=== PATIENT | female | born 1995 | race Caucasian/White ===

== ENCOUNTER 2016-08-30 06:33 | Inpatient (IN) | payer BC, MEDICAID ==
[~2016-08-30] VITALS: Ht 152.4 cm; Wt 56.2 kg
[2016-08-30] VITALS (25 sets, daily range): BP systolic 105–154; BP diastolic 59–87; PULSE 52–83; RESP 17–20; TEMP 97.6–99.3
[~2016-08-30 06:33] MED LIST: Z.0.NO CURRENT MEDS
[2016-08-30] MEDS ORDERED: LACTATED RINGER'S 1000 ML INJ 1,000 ML IV PRN (07:54)
--- NOTE | 2016-08-30 07:54 | PD ---
HPI Chief Complaint Contractions, fluid per vagina since her exam at the office yesterday Date Seen: Aug 30, 2016 Time Seen: 07:50 Travel History International Travel<30 Days: No Contact w/Intl Traveler<30Days: No Known Affected Area: No History of Present Illness HPI 21-year-old female who is at 39 weeks 2 days comes in today complaining of contractions since 4:00 this morning, and the vaginal fluid since her exam yesterday in the office. Admission the office was 4 cm and some effacement. We strep negative is otherwise uncomplicated patient has a history of a possible seizure disorder but she is not on any medication showed no seizure activity during the . Para: 0 : 1 History Past Medical History Narrative Medical Question will seizure disorder Past Surgical History Surgical History: No Previous Surgery Family History Family History: Negative Social History Alcohol Use: No Tobacco Use: No Substance Abuse: No Allergies-Medications (Allergen,Severity, Reaction): Coded Allergies: No Known Allergies (Verified Allergy, Mild, 05/16/07) Home Meds Reported Medications Miscellaneous (No Current Meds) Misc Ref 0 05/16/07 Review of Systems Except as stated in HPI: all other systems reviewed are Neg Physical Exam Narrative GENERAL: Well-nourished, well-developed patient. SKIN: Warm and dry. HEAD: Normocephalic and atraumatic. EYES: No scleral icterus. No injection or drainage. ENT: No nasal drainage noted. Mucous membranes pink. Airway patent. NECK: Supple, trachea midline. No JVD. CARDIOVASCULAR: Regular rate and rhythm without murmurs, gallops, or rubs. RESPIRATORY: Breath sounds equal bilaterally. No accessory muscle use. BREASTS: Bilateral exam showed no masses , no retractions, no nipple discharge. ABDOMEN/GI: Abdomen soft, non-tender, bowel sounds present, no rebound, no guarding Gravid to [39-] weeks size Fundal Height: [-] GENITOURINARY: External Genitalia: intact and normal in appearance BUS glands: [-Normal] Cervix: [-Posterior] Dilatation: [-3-4] Effacement: [-80] Station: [--2] Presentation: [Vertex-] Membranes: ruptured] Uterine Contractions: [-Every 3] FHT's: Category: [1] Baseline: [140-] Reactive: [-Moderate] Variability: [-Moderate] Decels: [-Absent] EXTREMITIES: No cyanosis or edema. BACK: Nontender without obvious deformity. No CVA tenderness. NEUROLOGICAL: Awake and alert. Motor and sensory grossly within normal limits. Five out of 5 muscle strength in all muscle groups. Normal speech. Data Data Vital Signs Reviewed: Yes MDM Plan 21-year-old female at 39 weeks and 2 days here with a positive amnisure, ruptured membranes since yesterday clear fluid Group B strep negative Patient's family refuses to be taking care of by Dr. Hernandez who is on-call for [facility] [employer] [facility]. I spoke in both to Dr. Hernandez and Dr. Jacobs advanced have instructed the patient does not desire Dr. Hernandez that she'll be taken over by the hospitalist service. Plan to admit patient desires possible epidural. Diagnosis Diagnosis: Primary Impression: 39 weeks gestation of Additional Impression: Ruptured membranes, prolonged Disposition: 01 DISCHARGE HOME Elsa Sanabria MD Aug 30, 2016 07:54
[2016-08-30] MEDS ORDERED: OXYTOCIN 30 UNITS-500ML PREMIX 500 ML IV ONE (08:00)
[2016-08-30] MEDS ORDERED: LIDOCAINE HCL 1% 50 ML VIAL INFIL PRN (08:00)
[2016-08-30] MEDS ORDERED: CITRIC ACID-SODIUM CITRATE LIQ 30 ML UDC PO SCH (08:00)
[2016-08-30] MEDS ORDERED: MINERAL OIL 10 ML VIAL TOPICAL PRN (08:00)
[2016-08-30] MEDS ORDERED: LIDOCAINE HCL 1% 50 ML VIAL I-DERMAL PRN (08:00)
[2016-08-30] MEDS ORDERED: SODIUM CHLORID 0.9% 500 ML INJ 500 ML IV PRN (08:00)
[2016-08-30] MEDS ORDERED: SODIUM CHLOR 0.9% 1000 ML INJ 1,000 ML IV PRN (08:14)
[2016-08-30] MEDS ORDERED: PRENTAB44 PO (08:26)
--- NOTE | 2016-08-30 08:36 | HHI.HP ---
History & Physical H&P HPI Chief Complaint Contractions, fluid per vagina since her exam at the office yesterday Date Seen: Aug 30, 2016 Time Seen: 07:50 Travel History International Travel<30 Days: No Contact w/Intl Traveler<30Days: No Known Affected Area: No History of Present Illness HPI 21-year-old female who is at 39 weeks 2 days comes in today complaining of contractions since 4:00 this morning, and the vaginal fluid since her exam yesterday in the office. Admission the office was 4 cm and some effacement. We strep negative is otherwise uncomplicated patient has a history of a possible seizure disorder but she is not on any medication showed no seizure activity during the . Para: 0 : 1 History Past Medical History Narrative Medical Question will seizure disorder Past Surgical History Surgical History: No Previous Surgery Family History Family History: Negative Social History Alcohol Use: No Tobacco Use: No Substance Abuse: No Allergies-Medications (Allergen,Severity, Reaction): Coded Allergies: No Known Allergies (Verified Allergy, Mild, 05/16/07) Home Meds Reported Medications Miscellaneous (No Current Meds) Misc Ref 0 05/16/07 Review of Systems Except as stated in HPI: all other systems reviewed are Neg Physical Exam Narrative GENERAL: Well-nourished, well-developed patient. SKIN: Warm and dry. HEAD: Normocephalic and atraumatic. EYES: No scleral icterus. No injection or drainage. ENT: No nasal drainage noted. Mucous membranes pink. Airway patent. NECK: Supple, trachea midline. No JVD. CARDIOVASCULAR: Regular rate and rhythm without murmurs, gallops, or rubs. RESPIRATORY: Breath sounds equal bilaterally. No accessory muscle use. BREASTS: Bilateral exam showed no masses , no retractions, no nipple discharge. ABDOMEN/GI: Abdomen soft, non-tender, bowel sounds present, no rebound, no guarding Gravid to [39-] weeks size Fundal Height: [-] GENITOURINARY: External Genitalia: intact and normal in appearance BUS glands: [-Normal] Cervix: [-Posterior] Dilatation: [-3-4] Effacement: [-80] Station: [--2] Presentation: [Vertex-] Membranes: ruptured] Uterine Contractions: [-Every 3] FHT's: Category: [1] Baseline: [140-] Reactive: [-Moderate] Variability: [-Moderate] Decels: [-Absent] EXTREMITIES: No cyanosis or edema. BACK: Nontender without obvious deformity. No CVA tenderness. NEUROLOGICAL: Awake and alert. Motor and sensory grossly within normal limits. Five out of 5 muscle strength in all muscle groups. Normal speech. Data Data Vital Signs Reviewed: Yes MDM Plan 21-year-old female at 39 weeks and 2 days here with a positive amnisure, ruptured membranes since yesterday clear fluid Group B strep negative Patient's family refuses to be taking care of by Dr. Hernandez who is on-call for [facility] [employer] [facility]. I spoke in both to Dr. Hernandez and Dr. Jacobs advanced have instructed the patient does not desire Dr. Hernandez that she'll be taken over by the hospitalist service. Plan to admit patient desires possible epidural. Diagnosis Diagnosis: Primary Impression: 39 weeks gestation of Additional Impression: Ruptured membranes, prolonged HadElsa adame MD Aug 30, 2016 08:36
[2016-08-30 08:38] LABS: BLOOD, URINE SMALL (NEG); GLUCOSE,URINE NEG (NEG); KETONE, URINE NEG (NEG); NITRITE,URINE NEG (NEG); PH, URINE 6.5 (5.0-8.5); SQUAMOUS EPITHELIAL CELL URINE <1 /hpf (0-5); URINE COLOR YELLOW (YELLW/STRAW)
[2016-08-30 08:39] LABS: AUTOMATED NEUTROPHIL # 12.3 TH/MM3 (1.8-7.7); BASOPHIL % 0.2 % (0.0-2.0); COMMENT (UR) CATH-CULT NOT IND; CULTURE IF INDICATED CATH CULTURE NOT IND; EOSINOPHIL # 0.1 TH/MM3 (0-0.4); EOSINOPHIL % 0.6 % (0.0-4.0); HEMATOCRIT 36.6 % (35.0-46.0); HEMO FLAGS DIFF FINAL; LYMPHOCYTE # 1.6 TH/MM3 (1.0-4.8); MEAN CELL VOLUME 83.2 FL (80.0-100.0); MEAN CORPUSCULAR HEMOGLOBIN 28.4 PG (27.0-34.0); MEAN CORPUSCULAR HGB CONC 34.1 % (32.0-36.0); MONO % 6.1 % (0.0-8.0); NEUT % 82.1 % (16.0-70.0); PLATELET COUNT 160 TH/MM3 (150-450)
--- NOTE | 2016-08-30 10:42 | PD.LABORPN ---
Subjective Subjective This is a 21y/o at 39w4d who presented with c/o contractions since 0400 and PROM since 1300 yesterday. She is feeling well, reports some discomfort but tolerable at this time. care with MARLENE, care uncomplicated. 1. GBS neg Objective Vital Signs Vital Signs Date Time Temp Pulse Resp B/P Pulse Ox O2 Delivery O2 Flow Rate FiO2 08/30/16 09:15 18 08/30/16 08:15 98.0 08/30/16 08:15 19 08/30/16 08:15 58 126/73 Objective Pelvic Exam: Cervix5/100/-1 Membranes:+ forebag, AROM with light blood tinged, Uterine Contractions: IUPC placed, pt on her side and contractions not well picked up FHT's: Category: 1, occasional variable decelerations Assessment/Plan Problem List: (1) Ruptured membranes, prolonged (2) 39 weeks gestation of Assessment and Plan 21y/o at 39w4d with PROM since 1300 on 08/29/16. -reassuring status -AROM of forebag and IUPC placed now -tried to drug and alcohol counselor about epidural but pt stated she already knew about it and didn't have any questions -not wanting an epidural at this time but is open to it -continue to monitor contractions since IUPC just placed -consider oxytocin in 2 hours if no cervical change or if contractions space out -anticipate Radha Avitia MD Aug 30, 2016 10:42
[2016-08-30] MEDS: LACTATED RINGER'S 1000 ML INJ 1,000 ML IV SCH (12:00)
[2016-08-30] MEDS ORDERED: BENZOCAINE 20% TOPICAL SPRAY 60 ML CAN TOPICAL PRN (13:30)
[2016-08-30] MEDS ORDERED: ACETAMINOPHEN 325 MG TAB PO PRN (13:30)
[2016-08-30] MEDS ORDERED: WITCH HAZEL 50%/GLYCERIN 12.5% 40 PAD JAR TOPICAL PRN (13:30)
[2016-08-30] MEDS ORDERED: ALUMINUM/MAGNESIUM/SIMETH 30 ML CUP PO PRN (13:30)
[2016-08-30] MEDS ORDERED: DOCUSATE SODIUM 50 MG/SENNA 8.6 MG TAB PO PRN (13:30)
[2016-08-30] MEDS ORDERED: ZOLPIDEM TARTRATE 5 MG TAB PO PRN (13:30)
[2016-08-30] MEDS ORDERED: oxyCODONE/ACETAMINOPHEN 5 MG/325 MG TAB PO PRN (13:30)
[2016-08-30] MEDS ORDERED: ONDANSETRON ODT 4 MG TAB PO PRN (13:30)
--- NOTE | 2016-08-30 13:32 | PD.OB.DELI ---
Anesthesia: Lidocaine local to perineum Episiotomy: None Vaginal Delivery: Normal Presentation: Compound Nuchal Cord: None Delayed cord clamping (45 sec): No : Female One Minute : 7 Five Minute : 9 Weight: 3130 Placenta: Spontaneous delivery Laceration: Vaginal laceration, 2 deg Repair: Chromic interrupted, Chromic running Additional Information This is a 21y/o at 39w4d who presented with c/o leakage of fluid since 1300 on 08/29/2016 and contractions. She progressed well spontaneously through labor. AROM of large forebag was performed at 1030a. She did not receive an epidural. She pushed very effectively and the head was delivered atraumatically. The body was delivered atraumatically and a vigorous female infant was delivered. The was placed on the maternal abdomen. The cord was clamped and cut immediately due to poor tone. The vagina was examined and a 2nd degree vaginal laceration was noted which were repaired with 2-0/3-0 chromic. The placenta was delivered spontaneously and noted to be intact. The lacerations were noted to be hemostatic. Bleeding was minimal. All sponge/lap/instruments were accounted for. Radha Black MD Aug 30, 2016 13:32
[2016-08-30] MEDS ORDERED: DIPHTH/TETANUS/ACEL PERTUSSIS (BOOSTER) 0.5 ML VIAL/PFS IM ONE (16:00)
[2016-08-30] MEDS ORDERED: MEASLES, MUMPS, RUBELLA VACCINE 0.5 ML VIAL SQ ONE (16:00)
[2016-08-30] MEDS: IBUPROFEN 600 MG TAB PO PRN (17:46)
[2016-08-31 07:45] VITALS: BP 99/62; PULSE 55; RESP 16; TEMP 97.9
[2016-08-31] MEDS: LACTATED RINGER'S 1000 ML INJ 1,000 ML IV SCH (07:54)
--- NOTE | 2016-08-31 09:35 | HHI.OB ---
Subjective Post Day: 1 Remarks Pt feeling well. No issues. Pain well controlled. She is and coping well. Objective Vitals/I&O Vital Signs Date Time Temp Pulse Resp B/P Pulse Ox O2 Delivery O2 Flow Rate FiO2 08/31/16 07:45 97.9 55 16 99/62 08/30/16 20:00 99.3 52 18 08/30/16 20:00 131/79 08/30/16 15:00 17 08/30/16 15:00 97.9 08/30/16 14:45 18 08/30/16 14:45 64 154/87 08/30/16 14:30 18 08/30/16 14:30 63 131/69 08/30/16 14:16 63 128/75 08/30/16 14:15 18 08/30/16 14:00 63 131/75 08/30/16 13:45 62 138/77 08/30/16 13:30 74 127/84 08/30/16 13:16 83 105/59 08/30/16 13:14 80 128/77 08/30/16 13:14 18 08/30/16 13:13 97.9 08/30/16 12:40 82 08/30/16 12:35 66 08/30/16 12:30 66 08/30/16 12:25 70 08/30/16 12:20 66 08/30/16 12:15 62 08/30/16 12:10 67 08/30/16 12:05 70 08/30/16 12:00 20 08/30/16 11:15 20 08/30/16 10:15 97.6 20 Objective Remarks GENERAL: Well-nourished, well-developed patient. CARDIOVASCULAR: Regular rate and rhythm without murmurs, gallops, or rubs. RESPIRATORY: Breath sounds equal bilaterally. No accessory muscle use. ABDOMEN/GI: Abdomen soft, non-tender. Fundus: Firm, non-tender at umbilicus. GENITOURINARY: Light to moderate bleeding. EXTREMITIES: No cyanosis or edema, non-tender, without signs of DVT. Medications and IVs Current Medications Medications (Trade) Dose Ordered Sig/Flor Route Start Time Stop Time Status Last Admin Lactated Ringer's 1,000 ml @ 125 mls/hr Q8H IV 08/30/16 07:54 08/30/16 12:00 Lactated Ringer's 1,000 ml @ 3,000 mls/hr Q20M PRN IV 08/30/16 07:54 08/30/16 11:59 Sodium Chloride 500 ml @ 1,000 mls/hr ONCE PRN IV 08/30/16 08:00 (NS 1000 ml Inj) 1,000 ml @ 100 mls/hr Q10H PRN IV 08/30/16 08:14 (Muri-Lube Oil) 10 ml UNSCH PRN TOPICAL 08/30/16 08:00 (Tylenol) 650 mg Q4H PRN PO 08/30/16 13:30 (Motrin) 600 mg Q6H PRN PO 08/30/16 13:30 08/30/16 17:46 (Percocet 5-325 Mg) 1 tab Q4H PRN PO 08/30/16 13:30 (Americaine 20% Top Spr) 1 spray Q4H PRN TOPICAL 08/30/16 13:30 08/30/16 17:45 (Tucks Pads) 1 applic QID PRN TOPICAL 08/30/16 13:30 08/30/16 17:45 ([place]-Colace) 2 tab Q12H PRN PO 08/30/16 13:30 (Ambien) 5 mg HS PRN PO 08/30/16 13:30 (Mag-Al Plus Susp Liq) 15 ml Q8H PRN PO 08/30/16 13:30 (Zofran Odt) 4 mg Q6H PRN PO 08/30/16 13:30 Assessment/Plan Problem List: (1) Ruptured membranes, prolonged (2) 39 weeks gestation of Assessment and Plan 21y/o s/p . -stable -d/c home tomorrow. Radha Black MD Aug 31, 2016 09:35
[2016-08-31] MEDS: IBUPROFEN 600 MG TAB PO PRN (15:23)
[2016-08-31 19:30] VITALS: BP 113/76; PULSE 63; RESP 16; TEMP 97.9
[2016-09-01] MEDS ORDERED: IBUP-232 PO (06:23)
[2016-09-01] MEDS ORDERED: PERI8.6T PO (06:23)
--- NOTE | 2016-09-01 06:24 | HHI.DCPOC ---
Discharge Care Plan Diagnosis: (1) (spontaneous vaginal delivery) Report Symptoms to Your Doctor -Temperature above 100.5 degrees -Redness, of incision or excessive or foul smelling drainage -Unusual pain or calf pain -Increased vaginal bleeding -Painful or difficulty urinating -Feelings of extreme sadness or anxiety after 2 weeks Goals to Promote Your Health * To prevent worsening of your condition and complications * To maintain your health at the optimal level Directions to Meet Your Goals Take your medications as prescribed Follow your dietary instruction Follow activity as directed Ensure plenty of rest for recovery Drink fluids for hydration Keep your appointments as scheduled Take your immunizations and boosters as scheduled If your symptoms worsen call your PCP, if no PCP go to Urgent Care Center or Emergency Room Smoking is Dangerous to Your Health. Avoid second hand smoke Call the 24-hour crisis hotline for domestic abuse at Danelle Del Cid MD R2 Sep 01, 2016 06:24
--- NOTE | 2016-09-01 06:27 | HHI.OB ---
Subjective Remarks No acute issues overnight. Vitals are stable, patient remains afebrile. Vaginal bleeding is decreasing and pain is well-controlled. She is ambulating without difficulty, voiding and stooling. She denies any chest pain, shortness of breath, or leg pain. She is bonding well with infant. Objective Vitals/I&O Vital Signs Date Time Temp Pulse Resp B/P Pulse Ox O2 Delivery O2 Flow Rate FiO2 08/31/16 19:30 113/76 08/31/16 19:30 97.9 63 16 08/31/16 07:45 97.9 55 16 99/62 Objective Remarks GENERAL: Well-nourished, well-developed patient. CARDIOVASCULAR: Regular rate and rhythm without murmurs, gallops, or rubs. RESPIRATORY: Breath sounds equal bilaterally. No accessory muscle use. ABDOMEN/GI: Abdomen soft, non-tender. Fundus: Firm, non-tender at umbilicus. GENITOURINARY: Light to moderate bleeding. EXTREMITIES: No cyanosis or edema, non-tender, without signs of DVT. Medications and IVs Current Medications Medications (Trade) Dose Ordered Sig/Flor Route Start Time Stop Time Status Last Admin Lactated Ringer's 1,000 ml @ 125 mls/hr Q8H IV 08/30/16 07:54 08/30/16 12:00 Lactated Ringer's 1,000 ml @ 3,000 mls/hr Q20M PRN IV 08/30/16 07:54 08/30/16 11:59 Sodium Chloride 500 ml @ 1,000 mls/hr ONCE PRN IV 08/30/16 08:00 (NS 1000 ml Inj) 1,000 ml @ 100 mls/hr Q10H PRN IV 08/30/16 08:14 (Muri-Lube Oil) 10 ml UNSCH PRN TOPICAL 08/30/16 08:00 (Tylenol) 650 mg Q4H PRN PO 08/30/16 13:30 (Motrin) 600 mg Q6H PRN PO 08/30/16 13:30 08/31/16 15:23 (Percocet 5-325 Mg) 1 tab Q4H PRN PO 08/30/16 13:30 (Americaine 20% Top Spr) 1 spray Q4H PRN TOPICAL 08/30/16 13:30 08/30/16 17:45 (Tucks Pads) 1 applic QID PRN TOPICAL 08/30/16 13:30 08/30/16 17:45 ([place]-Colace) 2 tab Q12H PRN PO 08/30/16 13:30 (Ambien) 5 mg HS PRN PO 08/30/16 13:30 (Mag-Al Plus Susp Liq) 15 ml Q8H PRN PO 08/30/16 13:30 (Zofran Odt) 4 mg Q6H PRN PO 08/30/16 13:30 Assessment/Plan Problem List: (1) (spontaneous vaginal delivery) Assessment and Plan 21 y/o female who is PPD# 2 s/p . -Continue routine care. -Percocet and Motrin PRN pain. -Encouraged OOB. Advised pelvic rest for 6 wks. -Re: ctrl, she would like to consider her options. -Discharge home today. Danelle Michaels Dr., MD R2 Sep 01, 2016 06:27
[2016-09-01] MEDS: IBUPROFEN 600 MG TAB PO PRN (06:58)
[2016-09-01] MEDS: LACTATED RINGER'S 1000 ML INJ 1,000 ML IV SCH (07:54)
[2016-09-01 08:00] VITALS: BP 129/77; PULSE 49; RESP 16; TEMP 97.7
[2016-09-01 10:35] VITALS: PULSE 77; O2SAT 99
== END 2016-09-01 14:13 | disposition home or self-care (01) | DRG 775 ==
LOC: HOBED 06:33 → H2EB 08:01 → H1EA 15:40
PROVIDERS: ADMIT Obstetrics & Gynecology Obstetrics; ATTEND Obstetrics & Gynecology Obstetrics
PROC: 10907ZC Drainage of Amniotic Fluid, Therapeutic from Products of Conception, Via Natural or Artificial Opening (ICD-10-PCS; principal; 2016-08-30)
PROC: 10E0XZZ Delivery of Products of Conception, External Approach (ICD-10-PCS; 2016-08-30)
PROC: 0KQM0ZZ Repair Perineum Muscle, Open Approach (ICD-10-PCS; 2016-08-30)
PROC: 10H07YZ Insertion of Other Device into Products of Conception, Via Natural or Artificial Opening (ICD-10-PCS; 2016-08-30)
DX: O42.12 Full-term premature rupture of membranes, onset of labor more than 24 hours following rupture (principal); O32.6XX0 Maternal care for compound presentation, not applicable or unspecified; O70.1 Second degree perineal laceration during delivery; Z37.0 Single live birth; Z3A.39 39 weeks gestation of pregnancy
CPT/HCPCS: 59025; 81001; 84112; 85025; 86900; 86901; J3010; J7120